=== PATIENT | male | born 1990 | race Caucasian/White ===

== ENCOUNTER → 2020-09-18 | Outpatient (CLI) | payer OTHER, MEDICAID ==
[2020-09-18 11:31] LABS: ALANINE AMINOTRANSFERASE 41 U/L (12-78); ALBUMIN 4.1 g/dL (3.4-5.0); ANION GAP 2 mmol/L (5-15); CALCIUM 8.6 mg/dL (8.5-10.1); CHLORIDE 112 mmol/L (98-107); CHOLESTEROL, TOTAL 153 mg/dL (140-239); CREATININE 1.17 mg/dL (0.7-1.3)
[2020-09-18 11:33] LABS: ALKALINE PHOSPHATASE 65 U/L (45-117); BILIRUBIN,TOTAL 0.4 mg/dL (0.2-1.0); CHOL/HDL RATIO 4.5; HDL CHOL % 22 % (26-37); HDL CHOLESTEROL (DIRECT) 34 mg/dL (40-60); LDL CHOLESTEROL,CALCULATED 95 mg/dL (54-169); LDL/HDL RATIO 2.8 (0.5-3.0); TOTAL PROTEIN 7.6 g/dL (6.4-8.2); TRIGLYCERIDES 121 mg/dL (50-200); VLDL CHOLESTEROL 24 mg/dL (0-25)
== END | disposition home or self-care (01) ==
LOC: LAB 10:59
PROVIDERS: ATTEND Student in an Organized Health Care Education/Training Program
DX: Z79.899 Other long term (current) drug therapy (principal)
CPT/HCPCS: 36415; 80053; 80061

== ENCOUNTER → 2020-10-24 | Outpatient (CLI) | payer OTHER, MEDICAID ==
[2020-10-24 11:10] LABS: ALBUMIN 4.2 g/dL (3.4-5.0); BILIRUBIN, DIRECT 0.2 mg/dL (0.1-0.2)
[2020-10-24 11:11] LABS: BILIRUBIN,INDIRECT 0.6 mg/dL (0.0-2.0); BILIRUBIN,TOTAL 0.8 mg/dL (0.2-1.0)
== END | disposition home or self-care (01) ==
LOC: LAB 10:45
PROVIDERS: ATTEND Nurse Practitioner Family
DX: L70.0 Acne vulgaris (principal)
CPT/HCPCS: 36415; 80076; 84478